=== PATIENT | female | born 1960 | race Caucasian/White ===

== ENCOUNTER → 2018-07-24 10:48 | Outpatient (CLI) | payer BC, SELFPAY ==
--- NOTE | 2018-07-24 10:51 | ECHOD_ITS ---
Reason For Study: PALPITATIONS Procedure This was a 2D Doppler, Color Flow transthoracic echocardiogram. The exam was of adequate technical quality. Exam performed in department. Left Ventricle Normal LV size. Left ventricular systolic function is normal. The estimated ejection fraction is 60 %. Transmitral doppler flow suggestive of impaired relaxation of left ventricle. No regional wall motion abnormalities noted. Right Ventricle Normal RV size. Normal systolic function. Atria Normal left atrium. Normal right atrium. Lipomatous hypertrophy of the atrial septum. No doppler evidence for ASD. Mitral Valve There is no mitral annular calcification. Normal mitral valve. Trivial mitral valve insufficiency. Tricuspid Valve Normal tricuspid valve. Trivial tricuspid valve insufficiency. Right ventricular systolic pressure estimated to be 29 mmHg. Aortic Valve Trisinus/trileaflet aortic valve. Normal aortic valve. Pulmonic Valve The pulmonic valve is not well visualized. Trivial pulmonic valve insufficiency. Great Vessels Normal sized aortic root. Pericardium/Pleural No pericardial effusion. MMode/2D Measurements & Calculations LVIDd: 3.9 cm IVSd: 1.0 cm Ao root diam: 2.7 cm LVIDs: 2.8 cm LVPWd: 0.95 cm LA dimension: 3.0 cm RVDd: 2.7 cm FS: 28.0 % LAV(MOD-bp): 26.3 ml LVAd ap4: 24.9 cm2 SV(MOD-sp4): 38.4 ml LAV(MOD-bp) Indexed: 15.8 ml/m2 EDV(MOD-sp4): 62.4 ml LAV(MOD-sp2): 30.2 ml EDV(sp4-el): 66.7 ml LAV(MOD-sp4): 24.2 ml LVAs ap4: 13.7 cm2 ESV(MOD-sp4): 24.0 ml ESV(sp4-el): 25.2 ml EF(MOD-sp4): 61.6 % EF(sp4-el): 62.2 % SV(sp4-el): 41.5 ml LA A4 area: 11.9 cm2 RA A4 area: 9.6 cm2 Time Measurements MV dec time: 0.18 sec Doppler Measurements & Calculations MV E max shankar: 58.6 cm/sec Lat Peak E' Shankar: 6.8 cm/sec Med Peak E' Shankar: 5.5 cm/sec MV A max shankar: 85.8 cm/sec E/E' lat: 8.6 E/E' med: 10.7 MV E/A: 0.68 Ao V2 max: 105.2 cm/sec LV V1 max: 71.1 cm/sec PA V2 max: 66.3 cm/sec Ao max P.4 mmHg LV V1 max P.0 mmHg TR max shankar: 256.0 cm/sec TR max P.2 mmHg Interpretation Summary Left ventricular systolic function is normal. The estimated ejection fraction is 60 %. Lipomatous hypertrophy of the atrial septum. Trivial mitral valve insufficiency. Trivial tricuspid valve insufficiency. Trivial pulmonic valve insufficiency. Right ventricular systolic pressure estimated to be 29 mmHg. Transmitral doppler flow suggestive of impaired relaxation of left ventricle Ordering Physician: Waldemar Mcnally Referring Physician: JOSÉ ANTONIO HIGGINS Performed By: Melissa Tay, VARUN, RVT
--- NOTE | 2018-07-24 19:24 | STRESSREP ---
Stress Test Report Date: 07/24/2018 Procedure: Exercise tolerance test Indications: Palpitations; PVCs, hyperlipidemia Consent: Per the patient Procedure: The patient exercised on a Fer protocol for 6 minutes completing stage II achieving a peak heart rate of 157 bpm (96 % predicted maximal heart rate) with a peak blood pressure 164/86 mmHg and a peak MET capacity of approximately 7 MET's. The baseline ECG demonstrated normal sinus rhythm; occasional PVCs. The peak exercise ECG demonstrated no obvious ECG changes. There were occasional PVCs pretest, during Stage I, and during recovery. The functional capacity was considered average. The patient had no complaint of chest discomfort during exercise or recovery. The examination was discontinued secondary to dyspnea. Impression: 1. Technically adequate (percent predicted maximal heart rate greater than 85%) exercise tolerance test 2. Peak exercise ECG with no obvious ECG changes 3. There were occasional PVCs pretest, during Stage I, and during recovery. This note was generated with [employer] software. It may contain incorrect words, spelling, and punctuation that were not noted in checking the note before signing.
--- NOTE | 2018-07-24 19:40 | STRESSREP_ITS ---
Stress Test Report Date: 07/24/2018 Procedure: Exercise tolerance test Indications: Palpitations; PVCs, hyperlipidemia Consent: Per the patient Procedure: The patient exercised on a Fer protocol for 6 minutes completing stage II achieving a peak heart rate of 157 bpm (96 % predicted maximal heart rate) with a peak blood pressure 164/86 mmHg and a peak MET capacity of approximately 7 MET 's. The baseline ECG demonstrated normal sinus rhythm; occasional PVCs. The peak exercise ECG demonstrated no obvious ECG changes. There were occasional PVCs pretest, during Stage I, and during recovery. The functional capacity was considered average. The patient had no complaint of chest discomfort during exercise or recovery. The examination was discontinued secondary to dyspnea. Impression: 1. Technically adequate (percent predicted maximal heart rate greater than 85% ) exercise tolerance test 2. Peak exercise ECG with no obvious ECG changes 3. There were occasional PVCs pretest, during Stage I, and during recovery. This note was generated with [employer] software. It may contain incorrect words, spelling, and punctuation that were not noted in checking the note before signing.
== END ==
PROVIDERS: Family Provider Internal Medicine; PCP Internal Medicine; Visit Provider Internal Medicine Cardiovascular Disease
DX: I49.3 Ventricular premature depolarization (principal)
CPT/HCPCS: 93017; 93306

== ENCOUNTER → 2019-01-14 10:52 | Outpatient (CLI) | payer BC, SELFPAY ==
[2018-07-04 10:54] VITALS: BMI 24.0
== END ==
PROVIDERS: Family Provider Internal Medicine; PCP Internal Medicine; Referring Provider Internal Medicine Cardiovascular Disease; Visit Provider Internal Medicine Cardiovascular Disease
DX: I49.3 Ventricular premature depolarization (principal)
CPT/HCPCS: 93225; 93226

== ENCOUNTER 2022-10-24 12:53 | Outpatient (RCR) | payer OTHER, SELFPAY | END 2022-11-05 23:59 | LOC: DC 12:53 | PROVIDERS: PCP Internal Medicine; Visit Provider Nurse Practitioner Family | DX: E11.9 Type 2 diabetes mellitus without complications (principal); N18.9 Chronic kidney disease, unspecified | CPT/HCPCS: 97802 ==

== ENCOUNTER → 2025-05-16 | Outpatient (CLI) | payer BC, SELFPAY ==
--- NOTE | 2025-05-16 09:44 | US_ITS ---
PROCEDURE: ABD LIMITED W/ ELASTOGRAPHY REASON FOR EXAM: HX FATTY LIVER COMPARISON: None. TECHNIQUE: Right upper quadrant abdominal ultrasound. Lan ElastQ Imaging shear wave elastography for non-invasive assessment of liver tissue stiffness. Lan EPIQ Elite. FINDINGS: LIVER: Size: Unremarkable Length: 16.6 cm Echotexture: Diffusely echogenic suggesting fatty infiltration Contour: Normal Lesions: None identified Elastography: EQI Med: 5.2 kPa EQI Med Shankar: 1.3 m/s IQR/Med: 12.3 %* GALLBLADDER: Surgically absent. COMMON BILE DUCT: Normal measuring 5 mm. . PANCREAS: Normal Visualized portions of the right kidney are unremarkable. No right upper quadrant ascites. US/ABD Limited w/ Elastography IMPRESSION: NO TO MILD HEPATIC FIBROSIS Fatty infiltration of the liver. Status post cholecystectomy. Reference Values: SRU <1.37 m/s (5.7kPa): No to mild fibrosis 1.37 m/s - 2.2 m/s: Moderate to severe fibrosis >2.2 m/s (15kPa): Significant fibrosis / cirrhosis METAVIR Score F2 or higher: 1.34 m/s (5.7kPa) F3 or higher: 1.55 m/s (7.3kPa) F4: 1.80 m/s (10kPa) * If the IQR/Med is >30%, the variance in the measurements is a large and the a ccuracy of the measurement may be in question. Reading Location: [place] [id number]
== END | disposition home or self-care (01) ==
LOC: US 09:37
PROVIDERS: PCP Nurse Practitioner Family
DX: K59.00 Constipation, unspecified (principal); K76.0 Fatty (change of) liver, not elsewhere classified; E78.5 Hyperlipidemia, unspecified
CPT/HCPCS: 76705; 76981

== ENCOUNTER → 2025-05-19 | Outpatient (CLI) | payer BC, SELFPAY ==
--- NOTE | 2025-05-19 13:45 | CT_ITS ---
PROCEDURE: ABDOMEN/PELVIS WITH CONTRAST 05/19/2025 REASON FOR EXAM: DIVERTICULITIS TECHNIQUE: ABDOMEN/PELVIS WITH CONTRAST Coronal and Sagittal reconstruction series were provided. CONTRAST: Isovue 300 VOLUME: 97 mL One or more dose reduction techniques were used (e.g., Automated exposure control, adjustment of the mA and/or kV according to patient size, use of iterative reconstruction technique. RADIATION DOSE SUMMARY: CTDlvol: 22 mGy DLP: 633 mGycm COMPARISON: No FINDINGS: Dependent atelectasis. Normal heart size. Status post cholecystectomy. Diffuse hepatic steatosis. Unremarkable pancreas, spleen, adrenal glands,. No hydronephrosis or ureteral stone. Unremarkable bladder. Normal uterus. Status post tubal ligation. No retroperitoneal or pelvic adenopathy. No free air. Nondistended bowel. Status post appendectomy. Moderate stool. No acute large bowel findings otherwise noted. Lumbar spine scoliosis and degeneration. CT/Abdomen/Pelvis WITH Contrast IMPRESSION: Moderate flow. Reading Location: [facility]
== END | disposition home or self-care (01) ==
PROVIDERS: PCP Nurse Practitioner Family
DX: E78.5 Hyperlipidemia, unspecified (principal); K76.0 Fatty (change of) liver, not elsewhere classified; K59.00 Constipation, unspecified
CPT/HCPCS: 74177; Q9967